=== PATIENT | female | born 1995 | race Caucasian/White ===

== ENCOUNTER 2018-09-09 09:04 | Inpatient (IN) | payer MEDICAID, OTHER ==
[~2018-09-09] VITALS: Ht 154.9 cm; Wt 84.0 kg
[2018-09-09 09:25] VITALS: Ht 154.9 cm; Wt 84.0 kg
[2018-09-09 09:26] VITALS: BP 125/80; PULSE 107; RESP 18
--- NOTE | 2018-09-09 10:00 | HP ---
Date/Time of Note Date/Time of Note DATE: 09/09/18 TIME: 09:57 OB - History Hx of Present Free Text/Dictation 23 YO with IUP at 38.2 weeks with EDC 09/21/2017 who reports to Triage for Labor evaluation. she reports mild to moderate contractions. she denies LOF per vagina. she denies vaginal bleeding. she reports good FM. she would like to go home if she is not in labor. she is motivated to be admitted in active labor. Care: Good Care Ultrasounds: Normal mid trimester US Obstetrical Complications: None Medical Complications: None Past Family/Social History * Past Medical, Surgical, Family and Obstetric Histories reviewed from chart. OB Admission Exam Vital Signs Vital Signs Vital Signs Date Temp Pulse Resp B/P (MAP) Pulse Ox O2 O2 Flow FiO2 Time Delivery Rate 09/09/18 98.4 107 18 125/80 09:26 (95) Physical Exam HEENT: WNL Heart: Rhythm Normal Lungs: Clear, Equal Abdomen: WNL Extremities: Normal Reflexes: Normal Cervical Dilatation: 1cm OB Assessment/Plan Other Assessment: IUP at 38.2 week NST category one 1 cm dilated Plan: Expectant Management Other plan: will reexamine patient and admit if in labor RAD MYERS MD Sep 09, 2018 10:00
--- NOTE | 2018-09-09 11:27 | TRIAGE ---
OB Triage Datetime Report Generated by CPN: 09/09/2018 11:27 Datetime: 09/09/2018 11:16 Labor Evaluation Frequency: 2-4 Monitor Mode: External Duration (sec)2399: 50-60 Quality: Moderate Pattern: Normal: <= 5 Contractions in 10 Minutes Resting Tone [place]: Relaxed Heart Rate FHR Baseline Rate: 135 Monitor Mode: External US Variability: Moderate 6-25 bpm Decelerations: Variable Category: Category II Datetime: 09/09/2018 10:57 Vaginal Exam Dilatation (cms): 1.5 Effacement (%): 70 Station: -3 Exam By: wliu Datetime: 09/09/2018 09:54 Labor Evaluation Frequency: 2-4 Monitor Mode: External Duration (sec)2399: 60-70 Quality: Moderate Pattern: Normal: <= 5 Contractions in 10 Minutes Resting Tone [place]: Relaxed Heart Rate FHR Baseline Rate: 135 Monitor Mode: External US Variability: Moderate 6-25 bpm Accelerations: 15X15 Decelerations: None Category: Category I Pain Assessment Pain Scale: 6 Pain Presence: Intermittent Pain Type: Contraction Pain Location: Abdomen Pain Goal: 3 Datetime: 09/09/2018 09:24 Assessment Type: Triage Maternal Assessment Level of Consciousness: Fully Conscious DTR's/Clonus: DTRs 2+; No Clonus Headache: Denies Blurred Vision: No Respiratory Effort: Unlabored; Regular Rhythm; Equal Expansion Breath Sounds, Left: Clear and Equal Breath Sounds, Right: Clear and Equal Nausea/Vomiting: Denies RUQ Epigastric Pain: Denies Lower Extremities Edema: None Degree: None Upper Extremities Edema: None Degree: None Facial Edema: None Fall Risk Assessment History of Falling: (0) No Secondary Diagnosis: (0) No Ambulatory Aid: (0) Bedrest/Nurse Assist IV Therapy: (0) No Gait: (0) Normal/Bedrest/Immobile Mental Status: (0) Oriented to Own Ability Fall Score: 0 Fall Risk Score Definition: No Risk: No action required Datetime: 09/09/2018 09:22 Time of Arrival: 09/09/2018 09:00 EGA: 38.2 Arrived By: Wheelchair Arrived From: Home Chief Complaint: uc @0200, pain level 6/10, deny srom, deny vag. bleeding Movement: Present Contractions: Regular Time Contractions Began: 09/09/2018 02:00 Rupture of Membranes: Denies Vaginal Bleeding: None Vaginal Discharge: Denies Recent Sexual Intercouse: Denies Abdominal Trauma: Not Applicable Patient Complaints: Contractions Time Provider Notified: 09/09/2018 09:28 Provider Notified: manju Initial Plan: r/o labor Datetime: 09/09/2018 09:15 Vaginal Exam Dilatation (cms): 1.5 Effacement (%): 60 Station: -3 Exam By: [email or web address]
[2018-09-09] MEDS ORDERED: CARBOPROST 250 MCG INJ IM PRN (11:30)
[2018-09-09] MEDS ORDERED: OXYTOCIN 30 UNITS/LR 500 ML IV SCH ×2 (11:30)
[2018-09-09] MEDS ORDERED: METHYLERGONOVINE 0.2 MG INJ IM PRN (11:30)
[2018-09-09] MEDS ORDERED: OXYTOCIN 30 UNITS/LR 500 ML IV PRN (11:30)
[2018-09-09] MEDS ORDERED: BUTORPHANOL 2 MG INJ IV PRN (11:30)
[2018-09-09] MEDS ORDERED: LIDOCAINE 1% (MPF) 30 ML INJ INJ PRN (11:30)
[2018-09-09] MEDS ORDERED: OXYCODONE/ASPIRIN (4.88/325) TAB PO PRN (11:30)
[2018-09-09] MEDS ORDERED: IBUPROFEN 600 MG TAB PO PRN (11:30)
[2018-09-09] MEDS ORDERED: MISOPROSTOL 200 MCG TAB PR PRN (11:30)
[2018-09-09] MEDS: LACTATED RINGER'S 1,000 ML IV SCH ×5 (11:51→21:59)
--- NOTE | 2018-09-09 12:20 | PREAC ---
Date/Time of Note Date/Time of Note DATE: 09/09/18 TIME: : Anesthesia Eval and Record Evaluation Time Pre-Procedure Interview DATE: 09/09/18 TIME: : Age 23 Sex female NPO: 8 hrs Preoperative diagnosis G1 Planned procedure labor epidural Past Medical History Past Medical History: Includes GI: Obesity Surgery & Anesthesia Issues No known issue Meds Anticoagulation: No Beta Migdalia within 24 hr: No Reason Beta Migdalia not given: Pt. not on B-Migdalia No Active Prescriptions or Reported Meds Current Medications Lactated Ringer's 1,000 ml @ 125 mls/hr Q8H IV Last administered on 09/09/18at 11:51; Admin Dose 125 MLS/HR; Start 09/09/18 at 11:15 Butorphanol Tartrate (Stadol) 2 mg Q2H PRN IV .PAIN; Start 09/09/18 at 11:30 Lidocaine (Xylocaine 1% (Mpf)) 30 ml ONCE PRN INJ .EPISIOTOMY; Start 09/09/18 at 11:30 Oxytocin/Lactated Ringer's 500 ml @ 500 mls/hr ONCE POST IV ; Start 09/09/18 at 11:30 Oxytocin/Lactated Ringer's 500 ml @ 125 mls/hr POST IV ; Start 09/09/18 at 11:30 Ibuprofen (Motrin) 600 mg ONCE PRN PO .PAIN 1-5; Start 09/09/18 at 11:30 Oxycodone/Aspirin (Percodan) 2 tab ONCE PRN PO .PAIN 6-10; Start 09/09/18 at 11:30 Oxytocin/Lactated Ringer's 500 ml @ 0 mls/hr ONCE PRN IV .VAGINAL BLEEDING; Start 09/09/18 at 11:30 Methylergonovine Maleate (Methergine) 0.2 mg ONCE PRN IM .VAGINAL BLEEDING; Start 09/09/18 at 11:30 Carboprost Tromethamine (Hemabate) 250 mcg ONCE PRN IM .VAGINAL BLEEDING; Start 09/09/18 at 11:30 Misoprostol (Cytotec) 1,000 mcg ONCE PRN PA .VAGINAL BLEEDING; Start 09/09/18 at 11:30 Oxytocin/Lactated Ringer's 500 ml @ 0 mls/hr FOR AUGMENTATION IV ; Start 09/09/18 at 11:30 Meds reviewed: Yes Allergies Coded Allergies: No Known Allergies (Verified Allergy, Mild, 12/14/09) Allergies Reviewed: Yes Labs/Studies Labs Reviewed: Reviewed by anesthesiologist Result Diagram: 09/09/18 1140 Laboratory Tests 09/09/18 11:40 test: Positive Pre-procedure Exam Last vitals Vital Signs Date Temp Pulse Resp B/P (MAP) Pulse Ox O2 O2 Flow FiO2 Time Delivery Rate 09/09/18 98.4 107 18 125/80 09:26 (95) Airway: Adequate mouth opening, Adequate thyromental dist Mallampati: Mallampati II Teeth: Normal Lung: Normal Heart: Normal ASA Physical Status ASA physical status: 2 Emergency: None Planned Anesthetic Neuraxial: Epidural Pre-operative Attestations Prior to commencing anesthesia and surgery, the patient was re-evaluated, there was verification of: *The patient's identity *The results of appropriate recent lab work and preoperative vital signs *The above evaluation not changing prior to induction *Anesthetic plan, risk benefits, alternative and complications discussed with patient/family; questions answered; patient/family understands, accepts and wishes to proceed. AYAH CLEMENTE Sep 09, 2018 12:20
[2018-09-09] MEDS ORDERED: FENTAnyl 2MCG/ML-ROPIV 0.2% 100 ML ONE (12:48)
--- NOTE | 2018-09-09 13:04 | PAC ---
Date/Time of Note Date/Time of Note DATE: 09/09/18 TIME: 13:04 Post-Anesthesia Notes Post-Anesthesia Note Last documented vital signs Vital Signs Date Temp Pulse Resp B/P (MAP) Pulse Ox O2 O2 Flow FiO2 Time Delivery Rate 09/09/18 98.4 107 18 125/80 09:26 (95) Activity: WNL Respiratory function: WNL Cardiovascular function: WNL Mental status: Baseline Pain reasonably controlled: Yes Hydration appropriate: Yes Nausea/Vomiting absent: Yes AYAH CLEMENTE Sep 09, 2018 13:04
[2018-09-09] MEDS ORDERED: KETOROLAC 30 MG INJ IV PRN (23:00)
[2018-09-09] MEDS ORDERED: ONDANSETRON 4 MG INJ IV PRN (23:00)
[2018-09-09] MEDS ORDERED: DIPHENHYDRAMINE 50 MG INJ IV PRN (23:00)
[2018-09-09] MEDS ORDERED: NALOXONE (0.4 MG/ML) INJ IV PRN (23:00)
[2018-09-09] MEDS ORDERED: HYDROmorphONE 0.5 MG/0.5 ML SYG IV PRN ×2 (23:00)
[2018-09-09] MEDS: FENTAnyl 2MCG/ML-ROPIV 0.2% 100 ML BAG EPI SCH (23:03)
[2018-09-10] MEDS ORDERED: FAMOTIDINE 20 MG INJ IV SCH (01:00)
[2018-09-10] MEDS ORDERED: MINERAL OIL LIGHT 10 ML VIAL TOP ONE (03:00)
[2018-09-10] MEDS: LACTATED RINGER'S 1,000 ML IV SCH ×2 (04:45→07:29)
[2018-09-10] MEDS: FENTAnyl 2MCG/ML-ROPIV 0.2% 100 ML BAG EPI SCH (05:29)
--- NOTE | 2018-09-10 08:28 | LDN ---
Date/Time of Note Date/Time of Note DATE: 09/10/18 TIME: 08:26 Delivery Summary 23 YO with IUP at 38.2 weeks with EDC 09/21/2017 s/p of viable male with APGARS 9/9. placenta delivered intact and spontaneously. perineum was intact, but small first degree vaginal laceration was repaired with 3-0 Vicryl. Placenta Delivered: Spontaneously Meconium: none Perineal laceration: 0 Anesthesia type: Epidural Estimated blood loss: 300 Sponge & Needle done & correct: Yes All needle counts correct: Yes Any foreign bodies felt in the: No Delivery Information Sex Infant Sex: male Apgars 1 Minute: 9 5 Minute: 9 Suctioning Nose & mouth suctioned at kristie: No Delee suction performed: No Umbilical Cord Umbilical cord with: 3 Vessels Cord presentations: no nuchal cord Nuchal cord present X: 1 Cord Blood was obtained: Yes Mother & Baby Disposition Disposition Mom & Baby to Maternity; Good: Yes RAD MYERS MD Sep 10, 2018 08:28
[2018-09-10] MEDS ORDERED: HYDROCODONE/APAP (5/325) TAB PO PRN ×2 (08:30)
[2018-09-10] MEDS ORDERED: LANOLIN HPA 1 PKT TOP PRN (08:30)
[2018-09-10] MEDS ORDERED: OXYTOCIN 30 UNITS/LR 500 ML IV PRN (08:30)
[2018-09-10] MEDS ORDERED: ONDANSETRON 4 MG TAB PO PRN (08:30)
[2018-09-10] MEDS ORDERED: MAGNESIUM HYDROXIDE 30ML CUP PO PRN (08:30)
[2018-09-10] MEDS ORDERED: ONDANSETRON 4 MG INJ IV PRN (08:30)
[2018-09-10] MEDS ORDERED: NA PHOSPHATE/BIPHOS 133 ML ENEMA PR PRN (08:30)
[2018-09-10] MEDS ORDERED: MISOPROSTOL 200 MCG TAB PR PRN (08:30)
[2018-09-10] MEDS ORDERED: DIPHENHYDRAMINE 25 MG CAP PO PRN (08:30)
[2018-09-10] MEDS ORDERED: DIBUCAINE 1% 30 GM OINT TOP PRN (08:30)
[2018-09-10] MEDS ORDERED: DIPHENHYDRAMINE 50 MG INJ IV PRN (08:30)
[2018-09-10] MEDS ORDERED: SENNA/DOCUSATE NA (8.6MG/50MG) TAB PO PRN (08:30)
[2018-09-10] MEDS ORDERED: CARBOPROST 250 MCG INJ IM PRN (08:30)
[2018-09-10] MEDS: OXYTOCIN 30 UNITS/LR 500 ML IV SCH ×2 (08:31→12:20)
[2018-09-10] MEDS: SENNA/DOCUSATE NA (8.6MG/50MG) TAB PO SCH ×2 (09:00→21:02)
[2018-09-10] MEDS: IBUPROFEN 600 MG TAB PO SCH ×2 (12:00→17:38)
[2018-09-10 12:25] VITALS: BP 121/74; PULSE 98; RESP 17
--- NOTE | 2018-09-10 15:35 | QN ---
Documentation Comment service rendered around 09/10/1810/24/729 called for evaaluation of tracing sinusoidal pattern VE c/c/o with large caput wit direct OP fluid clear internal lead applied with sim's positon for spontaneous rotation of position her OB on his way JANE ESQUIVEL MD Sep 10, 2018 15:35
[2018-09-10] MEDS: LACTATED RINGER'S 1,000 ML IV* SCH ×2 (16:19→16:28)
[2018-09-10 16:30] VITALS: BP 120/71; PULSE 96; RESP 18
[2018-09-10] MEDS: BENZOCAINE 20% 56 ML SPRAY TOP PRN (17:51)
[2018-09-10] MEDS: WITCH HAZEL/GLYCERIN PAD PR PRN (17:52)
[2018-09-10 19:35] VITALS: BP 116/69; PULSE 104; RESP 18
[2018-09-11] VITALS: BP 111/71; PULSE 98; RESP 18
[2018-09-11] MEDS: IBUPROFEN 600 MG TAB PO SCH ×4 (00:04→17:26)
[2018-09-11] MEDS: LACTATED RINGER'S 1,000 ML IV* SCH (00:28)
[2018-09-11 04:05] VITALS: BP 116/72; PULSE 101
[2018-09-11 07:50] VITALS: BP 109/81; PULSE 93; RESP 18
[2018-09-11] MEDS: SENNA/DOCUSATE NA (8.6MG/50MG) TAB PO SCH ×2 (08:28→21:27)
--- NOTE | 2018-09-11 12:26 | QN ---
Documentation Comment PPD #1 Pt doing well and in good spirits. without a problem. T=98.0 BP 109/81 Fundus firm. Lochia minimal Ext 1+ edema. WBC 22.4 Hgb 11.5 Plts 244K P: Continue care. Repeat CBC in AM. Plan d/c tomorrow. DAVID GORDON MD Sep 11, 2018 12:26
[2018-09-11 16:15] VITALS: BP 118/57; PULSE 99; RESP 17
[2018-09-11 20:30] VITALS: BP 117/72; PULSE 94; RESP 18
[2018-09-12] MEDS: IBUPROFEN 600 MG TAB PO SCH ×3 (00:06→12:00)
[2018-09-12] MEDS: BENZOCAINE 20% 56 ML SPRAY TOP PRN (00:14)
[2018-09-12] MEDS: WITCH HAZEL/GLYCERIN PAD PR PRN (00:15)
[2018-09-12 04:00] VITALS: BP 112/66; PULSE 100; RESP 17
[2018-09-12 08:00] VITALS: BP 138/74; PULSE 89; RESP 18
[2018-09-12] MEDS ORDERED: VARICELLA VACCINE LIVE/PF 1,350 UNIT/0.5 ML ML SC* ONE (09:00)
[2018-09-12] MEDS ORDERED: DIPHTH/TET/ACEL PERTUSS (ADULT) 0.5 ML VIAL IM* ONE (09:00)
[2018-09-12] MEDS ORDERED: MEASLES,MUMPS,RUBELLA VACCINE INJ SC* ONE (09:00)
[2018-09-12] MEDS: SENNA/DOCUSATE NA (8.6MG/50MG) TAB PO SCH (10:09)
--- NOTE | 2018-09-12 12:12 | DS ---
Date/Time of Note Date/Time of Note DATE: 09/12/18 TIME: 12:11 Obstetrical Discharge Record Final Diagnosis Final Diagnosis: Term delivered Vaginal Delivery Obstetrical Delivery: Spontaneous Complications Augmentation: Yes Induction: Yes Rupture of Membranes: No Condition on Discharge Physical Assessment Voiding: Yes Bowel Movement: Yes Breast: Soft, non-tender, Filling Fundus: Firm Abdomen and Incision: soft, not tender Calf Tenderness: No Patient Condition: Good RAD MYERS MD Sep 12, 2018 12:12
--- NOTE | 2018-09-13 15:12 | DELSUM ---
Delivery Summary A-C Datetime Report Generated by CPN: 09/13/2018 15:12 DELIVERY PERSONNEL Warhead Maintenance Specialist: Duval, Kandace MATERNAL INFORMATION Delivery Anesthesia: Epidural Medications in Delivery: 30UNITS PITOCIN Delivery QBL (ml): 300 Placenta Cultured: No Maternal Complications: None LABOR SUMMARY EDC: 09/21/2018 00:00 No. Babies in Womb: 1 Attempted: No Labor Anesthesia: Epidural LABOR INFORMATION Reason for Induction: Not Applicable Onset of Labor: 09/10/2018 00:06 Complete Dilatation: 09/10/2018 05:51 Oxytocin: Augmentation Group B Beta Strep: Negative Antibiotics # of Doses: 0 Steroids Given: None Reason Steroids Not Administered: Not Applicable MEMBRANES Membranes Rupture Method: Spontaneous Rupture of Membranes: 09/10/2018 04:54 Length of Rupture (hr): 3.10 Amniotic Fluid Color: Clear Amniotic Fluid Amount: Moderate Amniotic Fluid Odor: None STAGES OF LABOR Stage 1 hr: 5 Stage 1 min: 45 Stage 2 hr: 2 Stage 2 min: 9 Stage 3 hr: 0 Stage 3 min: 2 Total Time in Labor hr: 7 Total Time in Labor min: 56 VAGINAL DELIVERY Episiotomy: None Laceration Extension: First Degree Laceration Type: Perineal Laceration Repair: Yes Initial Vag Sponge Count: 10 Final Vag Sponge Count: 10 Initial Vag Sharps Count: 1+1 Final Vag Sharps Count: 2 Sponge Count Correct: Yes; Vaginal Sweep Performed Sharps Count Correct: Yes BABY A INFORMATION Delivery Date/Time: 09/10/2018 08:00 Method of Delivery: Vaginal Born in Route : No : N/A Forceps: N/A Vacuum Extraction: N/A Shoulder Dystocia : No SHOULDER DYSTOCIA BABY A Delivery Date/Time: 09/10/2018 08:00 PRESENTATION/POSITION BABY A Presentation: Cephalic Cephalic Presentation: Face Vertex Position: Right Occipital Posterior Breech Presentation: N/A PLACENTA INFORMATION BABY A Placenta Delivery Time : 09/10/2018 08:02 Placenta Method of Delivery: Spontaneous Placenta Status: Delivered SCORES BABY A Heart Rate 1 min: >100 bpm Resp Effort 1 min: Good Cry Reflex Irritability 1 min: Cough/Sneeze/Pulls Away Muscle Tone 1 min: Active Motion Color 1 min: Body Volta, Extremit Blue Resuscitation Effort 1 min: Tactile Stimulation SCORE 1 MIN: 9 Heart Rate 5 min: >100 bpm Resp Effort 5 min: Good Cry Reflex Irritability 5 min: Cough/Sneeze/Pulls Away Muscle Tone 5 min: Active Motion Color 5 min: Body Volta, Extremit Blue Resuscitation Effort 5 min: Tactile Stimulation SCORE 5 MIN: 9 INFORMATION BABY A Gestational Age at Delivery: 38.3 Gestational Status: Early Term- 37- 38.6 Weeks Infant Outcome : Liveborn Infant Condition : Stable Infant Sex: Male IDENTIFICATION/MEDS BABY A ID Band Number: [id number] ID Band Location: Right Leg; Left Arm Sensor Applied: Yes Sensor Number: [id number] Sensor Location : Cord Clamp Vitamin K Given : Left Thigh Erythromycin Given: Given Both Eyes WEIGHT/LENGTH BABY A Infant Birthweight (gm): 3045 Infant Weight (lb): 6 Infant Weight (oz): 11 Length (in): 19.50 Length (cm): 49.53 CORD INFORMATION BABY A No. Cord Vessels: 3 Nuchal Cord : N/A Cord pH Baby Arterial: 7.20 Infant Cord pH Baby Venous: 7.31 Cord Blood Taken: Yes Infant Suction: Mouth; Nose ASSESSMENT BABY A Infant Complications: Multiple Variable Decels Infant Complications- Other: short cord Physical Findings at Delivery: Molding of the Head; Within Normal Limits Infant Respirations: Appears Normal Structural Technician/ALS Called : No Infant Care By: AYDE MCEKON/OSEAS RT Transferred To: Remains with Mother
== END 2018-09-12 15:11 | disposition home or self-care (01) | DRG 807 ==
LOC: L-D 09:04 → OBT 09:04 → L-D 11:10 → OBT 11:11 → PP1 09-10 16:20
PROVIDERS: ADMIT Specialist; ATTEND Specialist
PROC: 10E0XZZ Delivery of Products of Conception, External Approach (ICD-10-PCS; principal; 2018-09-10)
PROC: 0HQ9XZZ Repair Perineum Skin, External Approach (ICD-10-PCS; 2018-09-10)
DX: O70.0 First degree perineal laceration during delivery (principal); Z37.0 Single live birth; Z3A.38 38 weeks gestation of pregnancy
CPT/HCPCS: 36415; 36600; 82803; 85025; 85610; 85730; 86592; 86850; 86900; 86901; 87340; 90716; 99464; G0463; J2590; J3010; J7120